=== PATIENT | female | born 1970 | race African-American/Black ===

== ENCOUNTER 2018-11-22 23:57 | Observation (INO) | payer BC ==
[2018-11-23] MEDS ORDERED: Ondansetron PF 4 MG/2 ML Vial ONE ×2 (00:10→10:37)
[2018-11-23] MEDS ORDERED: Morphine 4 MG/ML VIAL ONE (00:10)
[2018-11-23 01:35] LABS: #Monocytes 0.4 thou/uL (0.11-0.59); #Neutrophils 8.6 thou/uL (1.40-6.50); %Basophils 0.3 % (0.0-1.0); %Eosinophils 0.2 % (0.0-10.0); %Lymphocytes 9.4 % (21.0-51.0); %Monocytes 4.2 % (0.0-10.0); Hemoglobin 11.7 g/dL (12.0-16.0); Mean Corpuscular Hemoglobin 27.8 pg (27.0-31.0); Mean Corpuscular Volume 84.1 fL (78.0-98.0); Mean Platelet Volume 8.6 fL (7.4-10.4); Platelet Count 219 thou/uL (130-400); Red Blood Cell (RBC) Count 4.23 mill/uL (4.20-5.40); White Blood Cell (WBC) Count 10.1 thou/uL (4.8-10.8)
[2018-11-23 01:58] LABS: BHCG - Serum Negative (NEGATIVE); Pregs Control Background? CLEAR/WHITE (CLR/WHITE); Pregs Control Bar Appear? YES (CONTROL BAR)
[2018-11-23 01:59] LABS: ALT (SGPT) 17 U/L (8-55); AST (SGOT) 17 U/L (5-34); Alkaline Phosphatase 39 U/L (40-150); Anion Gap 14 mmol/L (10-20); BUN (Urea Nitrogen) 12 mg/dL (7.0-18.7); Bilirubin, Total 0.6 mg/dL (0.2-1.2); Calc. Creatinine Clearance 0 mL/min (70-130); Calcium 8.8 mg/dL (7.8-10.44); Carbon Dioxide 23 mmol/L (22-29); Chloride 109 mmol/L (98-107); Estimated GFR-MDRD Greater than 90; Globulin 2.3 g/dL (2.4-3.5); Glucose 95 mg/dL (70-105); Potassium 3.6 mmol/L (3.5-5.1); Protein, Total 6.3 g/dL (6.0-8.3); Sodium 142 mmol/L (136-145)
[2018-11-23] MEDS ORDERED: Piperacillin/Tazobactam 4.5 GM VIAL ONE ×2 (02:36→02:37)
[2018-11-23] MEDS ORDERED: Fentanyl 100 MCG/2 ML VIAL ONE (03:14)
[2018-11-23] MEDS ORDERED: Bupivacaine/Epinephrine 0.25% 30 ML VIAL ONE (03:17)
--- NOTE | 2018-11-23 03:58 | HP ---
CHIEF COMPLAINT: Pain and mass protruding from the vagina. HISTORY OF PRESENT ILLNESS: Ms. Osborne is a 48-year-old black, G0 who is status post laparoscopic-assisted vaginal hysterectomy on August 19, 2018, in [place], who presents complaining of pain and a mass extending from her vagina after having intercourse earlier tonight. She denies change in bowel or bladder habits. PAST MEDICAL HISTORY: None. PAST SURGICAL HISTORY: Includes a myomectomy and the LAVH as above. CURRENT MEDICATIONS: None. ALLERGIES: NO KNOWN ALLERGIES. SOCIAL HISTORY: Denies tobacco, alcohol, or drug use. FAMILY HISTORY: Unremarkable. REVIEW OF SYSTEMS: Denies nausea, vomiting, fever, or chills. PHYSICAL EXAMINATION: VITAL SIGNS: As I interview her, her blood pressure is 113/70, her pulse is 95. She is afebrile. GENERAL: She is in no acute distress. CARDIOVASCULAR: Regular rate and rhythm. ABDOMEN: Soft, flat, and nontender. PELVIC EXAMINATION: Speculum exam discloses a defect of the vaginal cuff. Small bowel is seen protruding through it. LABORATORY DATA: CBC shows a white count of 10.1, hemoglobin and hematocrit of 11.7 and 35.6 respectively with 219,000 platelets. Type and screen has been ordered. ASSESSMENT: Vaginal cuff disruption. PLAN: Patient will be taken to the OR for repair. Patient understands the risks of the procedure including anesthesia, bleeding, infection, as well as damage to adjacent organs requiring repair, removal, or transfusion. She understands all the above and wishes to proceed. Job ID: [id number]
[2018-11-23] MEDS ORDERED: Ondansetron HCl/PF 4 MG/2 ML Vial IVP PRN (05:10)
[2018-11-23] MEDS ORDERED: Promethazine HCl 25 MG/ML VIAL IM PRN (05:10)
[2018-11-23] MEDS ORDERED: Promethazine HCl 25 MG/ML VIAL SLOW IVP PRN (05:10)
[2018-11-23] MEDS ORDERED: Meperidine HCl/PF 25 MG/ML VIAL SLOW IVP PRN (05:10)
[2018-11-23] MEDS ORDERED: Meperidine HCl/PF 25 MG/ML VIAL ONE (05:11)
--- NOTE | 2018-11-23 05:37 | OP ---
DATE OF PROCEDURE: 11/23/2018 DIRECTOR OF PROPERTY MANAGEMENT SURGEON: Mariaelena Buchanan MD ANESTHESIA: General endotracheal. PREOPERATIVE DIAGNOSIS: Vaginal cuff dehiscence. POSTOPERATIVE DIAGNOSIS: Vaginal cuff dehiscence. PROCEDURES PERFORMED: 1. Diagnostic laparoscopy. 2. Repair of vaginal cuff dehiscence. ESTIMATED BLOOD LOSS: Minimal. COMPLICATIONS: None. FINDINGS: Full [id number] separation of vaginal cuff, status post hysterectomy. TECHNIQUE IN DETAIL: After good general endotracheal anesthesia was achieved, the patient was prepped and draped in usual sterile fashion in the modified lithotomy position using the Quang stirrups. The patient was examined from below and it could be seen that there was a full cuff separation. A Davol syringe was covered with a sterile glove and this was placed in the vagina to occlude it. A Pichardo catheter was also placed. Attention was then turned to the abdomen where a small infraumbilical incision was made. A Veress needle was placed and the abdomen was insufflated with 4-5 L of carbon dioxide gas. Under direct vision, two 5 mm ports were placed in the right and left lower quadrants. Attention was then turned to the pelvis where the contents of the pelvis were explored. The defect was easily seen. There was no evidence of necrotic bowel or involvement of the bladder. Attention was then turned below where the vagina was closed in an interrupted fashion using 0 Vicryl sutures. Once this was accomplished, the abdomen was then insufflated again and the pelvis was thoroughly irrigated with a copious amount of warm saline solution. The bowel was inspected and there was no evidence of necrotic areas. All instruments were then removed from the abdomen. All skin incisions were closed using 4-0 Monocryl and Dermabond was applied to the surfaces. All instruments were then removed from the vagina. Sponge, lap, and needle counts were correct. The patient tolerated the procedure well and was taken to the recovery room in good condition. Job ID: [id number]
[2018-11-23] MEDS ORDERED: Piperacillin/Tazobactam 3.375 GM in Sodium Chloride 0.9% 100 ML IVPB SCH (06:00)
[2018-11-23] MEDS ORDERED: Acetaminophen/Codeine 30-300mg Tablet PO PRN ×2 (06:02)
[2018-11-23] MEDS ORDERED: Morphine 4 MG/ML VIAL SLOW IVP PRN (06:03)
[2018-11-23] MEDS ORDERED: ISOVUE-370 76%-LOCM 1 ML ONE (08:11)
--- NOTE | 2018-11-23 09:54 | CT ---
PRELIMINARY REPORT/[facility]/EMERGENTY AFTER-HOURS PROCEDURE CT Abdomen and Pelvis With Contrast EXAM DATE/TIME: 11/23/2018 1:56 AM CLINICAL HISTORY: 48 years old, female; Pain; Abdominal pain; Acute; Patient HX: PT reports intercourse earlier today a nd reports some pain during intercourse. PT now reports mostly lower abdominal pain and reports throb mary sensation in her vagina. PT reports hysterectomy on august 19, 2018 TECHNIQUE: Imaging protocol: Axial computed tomography images of the abdomen and pelvis with intravenous contras t. Coronal reformatted images were created and reviewed. COMPARISON: No relevant prior studies available. FINDINGS: Lower thorax: No acute findings. ABDOMEN: Liver: Subcentimeter hypodensities in the liver are too small to characterize, likely cysts. Gallbladder and bile ducts: Normal appearance of the gallbladder. No ductal dilation. Pancreas: No pancreatic mass or ductal dilation. Spleen: No splenic masses. Adrenals: No adrenal nodules. Kidneys and ureters: Symmetric perfusion of the kidneys. No enhancing mass or hydronephrosis. Stomach and bowel: No evidence of obstruction or bowel wall thickening. Appendix: Normal appendix. PELVIS: Bladder: Unremarkable as visualized. Reproductive: The uterus is not visualized. No adnexal masses. Within the left posterior lateral aspe ct of the lower third of the vagina there is a 3.3 x 2.2 cm cyst. ABDOMEN and PELVIS: Intraperitoneal space: Normal. No free air. No significant fluid collection. Bones/joints: No acute fracture. No dislocation. Soft tissues: Unremarkable. Vasculature: Normal vasculature. Lymph nodes: Normal. No enlarged lymph nodes. IMPRESSION: Within the left posterior-lateral aspect of the lower third of the vagina there is a 3.3 x 2.2 cm cys t, most consistent with a Bartholin gland cyst. Thank you for allowing us to participate in the care of your patient. Dictated and Authenticated by: Caitie Young MD 11/23/2018 3:16 AM Central Time ([place] & [place]) FINAL REPORT EMERGENCY AFTER HOURS CT ABDOMEN AND PELVIS: Date: 11/23/18 FINDINGS/IMPRESSION: I agree with the preliminary report provided by [facility]. There is a left vulvar cyst, likely related to Bartholin gland cyst. Appendix is normal in the right lower quadrant. There is nonspecific mild free fluid in the lower pelvis. POS: BH
[2018-11-23] MEDS ORDERED: PROPOFOL 200 MG/20 ML VIAL ONE (10:37)
[2018-11-23] MEDS ORDERED: Rocuronium Bromide 10 MG/ML (10ML VIAL) ONE (10:37)
[2018-11-23] MEDS ORDERED: Lidocaine 1% PF 5 ML VIAL ONE (10:37)
[2018-11-23] MEDS ORDERED: Ketorolac Tromethamine 30 MG/ML VIAL ONE (10:37)
[2018-11-23] MEDS ORDERED: PHENYLEPHRINE-NS 100 MCG/ML 10 ML SYRINGE ONE (10:37)
[2018-11-23] MEDS ORDERED: Glycopyrrolate 0.2 MG/ML 5 ML SYRINGE ONE (10:37)
[2018-11-23] MEDS: Piperacillin/Tazobactam 3.375 GM in Sodium Chloride 0.9% 100 ML IVPB SCH ×2 (10:51→19:03)
[2018-11-23] MEDS ORDERED: Sodium Chloride 0.9% 10 ML ONE (20:29)
[2018-11-23] MEDS: Sodium Chloride 0.9% 1,000 ML IV SCH (22:15)
[2018-11-24] MEDS: Piperacillin/Tazobactam 3.375 GM in Sodium Chloride 0.9% 100 ML IVPB SCH ×2 (00:37→06:47)
[2018-11-24] MEDS: Sodium Chloride 0.9% 1,000 ML IV SCH ×3 (06:15→07:37)
[2018-11-24] MEDS ORDERED: Sodium Chloride 0.9% 10 ML ONE (06:19)
[2018-11-24 08:07] VITALS: BP 127/73; TEMP 99.3
--- NOTE | 2018-11-24 11:49 | DIS ---
DATE OF ADMISSION: 11/23/2018 DATE OF DISCHARGE: 11/24/2018 ADMITTING DIAGNOSES: Vaginal cuff dehiscence or rupture with a prolapsed bowel. DISCHARGE DIAGNOSES: Vaginal cuff dehiscence or rupture with a prolapsed bowel. PROCEDURE: Diagnostic laparoscopy with closure of vaginal cuff. CONSULTATIONS: None. HOSPITAL COURSE: The patient is a 48-year-old female who is about 3 months status post a laparoscopic-assisted vaginal hysterectomy in August in [place], who presented to the emergency room with a mass extending into her vagina after having intercourse and was discovered to have a cuff dehiscence with bowel prolapse. The patient was emergently taken to the operating room where she underwent diagnostic laparoscopy and closure of the defect of the vaginal cuff with antibiotic irrigation and copious irrigation of the abdomen. The patient's postop course has been uncomplicated. She is now postop day #1. She has been on Zosyn for the last 24 hours and remained afebrile. The patient reports today that she has not required any pain medication and denied any pain. PHYSICAL EXAMINATION: VITAL SIGNS: This morning, blood pressure 116/88, temperature 99.4, pulse of 96, respiratory rate of 20, saturating 96% on room air. GENERAL: She appears to be in no acute distress. She is alert, oriented, cooperative, pleasant to interact with. HEENT: Head normocephalic, atraumatic. ABDOMEN: Soft. Her incisions are clean, dry, and intact. MEDICATIONS: The patient is being discharged to home on Augmentin 500 mg twice daily and Flagyl 500 mg 3 times daily for the next 5 days. DISCHARGE INSTRUCTIONS: She has instructions to seek medical attention should she experience fever, increasing pain, bleeding or foul discharge. The patient has instructions to follow with [facility] [place] in 2 weeks for a postop followup. Job ID: [id number]
== END 2018-11-24 10:13 | disposition home or self-care (01) ==
LOC: ERS 23:57 → SDC/OP 11-23 03:38 → 3SE 11-23 05:00
PROVIDERS: ADMIT Obstetrics & Gynecology; ATTEND Obstetrics & Gynecology
PROC: 0WJJ4ZZ Inspection of Pelvic Cavity, Percutaneous Endoscopic Approach (ICD-10-PCS; principal; 2018-11-24)
PROC: 0UQG7ZZ Repair Vagina, Via Natural or Artificial Opening (ICD-10-PCS; 2018-11-24)
DX: T81.32XA Disruption of internal operation (surgical) wound, not elsewhere classified, initial encounter (principal); K63.4 Enteroptosis; Z90.710 Acquired absence of both cervix and uterus
CPT/HCPCS: 36415; 74177; 80053; 84703; 85025; 86850; 86900; 86901; 96361; 96365; 96366; 96375; G0378; J1885; J2001; J2175; J2270; J2405; J2543; J2704; J3010; J7050; Q9966